=== PATIENT | female | born 1935 | race Caucasian/White ===

== ENCOUNTER 2021-10-01 13:35 | Inpatient (IN) | payer MEDICARE ==
[~2021-10-01] VITALS: Ht 165.1 cm; Wt 56.7 kg
[2021-10-01 14:42] LABS: HEMOGLOBIN 7.1 gm/dl (12.3-15.3); RED BLOOD COUNT 3.47 M/UL (4.00-5.10); WHITE BLOOD COUNT 9.6 K/UL (4.5-11.0)
[2021-10-01] MEDS ORDERED: ELIQUIS5 MG PO (15:01)
[2021-10-01] MEDS ORDERED: LEVOTHYROXINE50 MCG PO (15:01)
[2021-10-01] MEDS ORDERED: ATORVASTATIN CA20 MG PO (15:02)
[2021-10-01] MEDS ORDERED: CELEBREX100 MG PO (15:02)
[2021-10-01] MEDS ORDERED: AMLODIPINE BESY10 MG PO (15:02)
[2021-10-01] MEDS ORDERED: PROTONIX 40 MG40 M1 PO (15:02)
[2021-10-01] MEDS ORDERED: ISOSORBIDE DINI10 MG PO (15:03)
[2021-10-01] MEDS ORDERED: METOPROLOL TART50 MG PO (15:03)
[2021-10-01] MEDS ORDERED: PROAIR HFA8.5 GM INH (15:05)
[2021-10-01] MEDS ORDERED: PREDNISOLONE AC10 ML OU (15:06)
[2021-10-01 15:18] LABS: BUN/CREATININE RATIO 19 (0-10)
[2021-10-02 02:59] LABS: WHITE BLOOD COUNT 8.4 K/UL (4.5-11.0)
[2021-10-02 03:03] LABS: RED BLOOD COUNT 3.1 M/UL (4.00-5.10)
[2021-10-02 03:04] LABS: HEMOGLOBIN 6.6 gm/dl (12.3-15.3)
[2021-10-02 03:34] LABS: BUN/CREATININE RATIO 21 (0-10)
[2021-10-03 06:13] LABS: WHITE BLOOD COUNT 6.3 K/UL (4.5-11.0)
[2021-10-03 06:18] LABS: HEMOGLOBIN 9.9 gm/dl (12.3-15.3); RED BLOOD COUNT 4.15 M/UL (4.00-5.10)
[2021-10-03 06:26] LABS: BUN/CREATININE RATIO 18 (0-10)
[2021-10-03] MEDS ORDERED: LOVENOX40 MG/0.4 SQ (14:11)
[2021-10-03] MEDS ORDERED: HYDROCODON-ACE1 EAC4 PO (14:11)
[2021-10-03] MEDS ORDERED: ZOFRAN 4 MG TAB4 MG PO (14:11)
[2021-10-04 03:00] LABS: HEMOGLOBIN 8.2 gm/dl (12.3-15.3)
[2021-10-04 03:10] LABS: RED BLOOD COUNT 3.42 M/UL (4.00-5.10); WHITE BLOOD COUNT 7.9 K/UL (4.5-11.0)
[2021-10-04 03:31] LABS: BUN/CREATININE RATIO 22 (0-10)
--- NOTE | 2021-10-04 08:04 | NUR ---
patient talking to his son on the phone and patient pleasantly confuse noted. spoken to son and informed of patient new updates.
--- NOTE | 2021-10-04 11:16 | NUR ---
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
--- NOTE | 2021-10-05 00:40 | NUR ---
APPROX 2015 SON NOTIFIES THAT HE IS LEAVING TO GO HOME. APPROX 2019 NOTIFIY HOUSE OF SON LEAVING WELL. STATES WILL SEE WHAT CAN DO ABOUT SITTER. BED IN LOWEST POSTIION , BED ALARM IS ON. WILL FREQUENTLY CHECK AND MONITOR PT.
[2021-10-05 04:41] LABS: HEMOGLOBIN 7.8 gm/dl (12.3-15.3); RED BLOOD COUNT 3.27 M/UL (4.00-5.10)
[2021-10-05 04:49] LABS: WHITE BLOOD COUNT 9.9 K/UL (4.5-11.0)
[2021-10-05 04:56] LABS: BUN/CREATININE RATIO 26 (0-10)
[2021-10-06 04:00] LABS: HEMOGLOBIN 8.4 gm/dl (12.3-15.3); RED BLOOD COUNT 3.57 M/UL (4.00-5.10)
[2021-10-06 04:28] LABS: BUN/CREATININE RATIO 23 (0-10)
[2021-10-08 13:47] LABS: RED BLOOD COUNT 3.86 M/UL (4.00-5.10)
[2021-10-08 13:48] LABS: WHITE BLOOD COUNT 8.9 K/UL (4.5-11.0)
== END 2021-10-08 14:57 | DRG 480 ==
LOC: ER1 13:35 → M/S 17:18 → CDU 17:18 → M/S 18:25
PROVIDERS: Family Medicine; Internal Medicine; Orthopaedic Surgery; ADMIT Internal Medicine
PROC: 30233N1 Transfusion of Nonautologous Red Blood Cells into Peripheral Vein, Percutaneous Approach (ICD-10-PCS; 2021-10-02)
PROC: 8E0ZXY6 Isolation (ICD-10-PCS; 2021-10-02)
PROC: 3E03329 Introduction of Other Anti-infective into Peripheral Vein, Percutaneous Approach (ICD-10-PCS; 2021-10-02)
PROC: 3E0333Z Introduction of Anti-inflammatory into Peripheral Vein, Percutaneous Approach (ICD-10-PCS; 2021-10-03)
PROC: 0QS606Z Reposition Right Upper Femur with Intramedullary Internal Fixation Device, Open Approach (ICD-10-PCS; principal; 2021-10-03 15:00)
DX: S72.141A Displaced intertrochanteric fracture of right femur, initial encounter for closed fracture (principal); U07.1 COVID-19; J12.82 Pneumonia due to coronavirus disease 2019; D62 Acute posthemorrhagic anemia; E03.9 Hypothyroidism, unspecified; I25.10 Atherosclerotic heart disease of native coronary artery without angina pectoris; K21.9 Gastro-esophageal reflux disease without esophagitis; J44.9 Chronic obstructive pulmonary disease, unspecified; I10 Essential (primary) hypertension; H91.90 Unspecified hearing loss, unspecified ear; W01.0XXA Fall on same level from slipping, tripping and stumbling without subsequent striking against object, initial encounter; Y92.89 Other specified places as the place of occurrence of the external cause; Z85.3 Personal history of malignant neoplasm of breast; Z79.899 Other long term (current) drug therapy; Z88.0 Allergy status to penicillin; Z83.6 Family history of other diseases of the respiratory system; Z95.1 Presence of aortocoronary bypass graft; Z82.49 Family history of ischemic heart disease and other diseases of the circulatory system; Z79.01 Long term (current) use of anticoagulants; Z99.81 Dependence on supplemental oxygen
CPT/HCPCS: 36415; 36430; 70450; 71045; 72125; 73080; 73502; 73560; 76000; 80048; 80053; 82272; 82550; 82553; 82607; 82728; 82746; 83540; 83550; 83735; 84484; 85025; 85027; 85610; 86850; 86900; 86901; 86920; 93005; 94640; 94664; 94760; 96374; 96375; 97110; 97162; 97166; 97530; 97530-GP-CQ; 99285; C1713; J0690; J1100; J1650; J2001; J2270; J2405; J2704; J2765; J2795; J3010; J7030; P9016; U0002